=== PATIENT | male | born 1955 | race Caucasian/White ===

== ENCOUNTER 2017-02-20 00:27 | Emergency (ER) | payer BC ==
[~2017-02-20] VITALS: Ht 177.8 cm; Wt 138.3 kg
[2017-02-20 00:30] VITALS: TEMP 36.6; Ht 177.8 cm; Wt 138.3 kg
[2017-02-20 01:22] LABS: BASO % 0.3 %; BASO ABS # 0.03 K/uL (0-0.2); COMPLETE YES; EOS % 1.5 %; HEMATOCRIT 49.3 % (42-52); IG% 0.2 %; LYMPH % 16.1 %; LYMPH ABS # 1.42 K/uL (1.2-3.4); MEAN CELL VOLUME 89.5 fL (80-100); MEAN CORPUSCULAR HEMOGLOBIN 29.8 pg (25-34); MEAN CORPUSCULAR HGB CONC 33.3 g/dl (32-36); MONO % 7.5 %; NEUT % 74.4 %; PLATELET COUNT 201 K/uL (130-400); RED BLOOD COUNT 5.51 M/uL (4.7-6.1); WHITE BLOOD COUNT 8.81 K/uL (4.8-10.8)
[2017-02-20 01:48] VITALS: O2SAT 94
[2017-02-20 01:54] LABS: ALKALINE PHOSPHATASE 62 U/L (45-117); ALT/SGPT 59 U/L (12-78); AST/SGOT 30 U/L (15-37); BLOOD UREA NITROGEN 15 mg/dl (7-18); BUN/CREATININE RATIO 11.5 (10-20); CALCIUM 8.1 mg/dl (8.5-10.1); CARBON DIOXIDE 29 mmol/L (21-32); CHLORIDE 101 mmol/L (98-107); CKMB/CK RATIO 1.6 (0-3.0); GLUCOSE 170 mg/dl (70-99); POTASSIUM 3.4 mmol/L (3.5-5.1); SODIUM 138 mmol/L (136-145)
[2017-02-20] MEDS ORDERED: LEVO75TA5 PO (02:00)
[2017-02-20] MEDS ORDERED: HYDR25TA4 PO (02:01)
[2017-02-20] MEDS ORDERED: CHOL1TAB42 PO (02:02)
[2017-02-20] MEDS ORDERED: ZINC30TA3 PO (02:03)
[2017-02-20] MEDS ORDERED: [UNRECOGNIZED DRUG - CODE] NAE (02:06)
[2017-02-20] MEDS ORDERED: COEN1CAP37 PO (02:18)
[2017-02-20 02:46] VITALS: BP 150/98; PULSE 91; O2SAT 94
--- NOTE | 2017-02-20 04:14 | EMERGENCY ROOM VISIT NOTE ---
History Report prepared by Gabino: Karma Olson Under the Supervision of: Dr. Diane Valdez D.O. First contact with patient: 00:47 Chief Complaint: RESPIRATORY PROBLEMS Stated Complaint: CAN'T FIND PULSE Nursing Triage Summary: Pt was cleaning at a camp and was exposed to mold, since then pt states feeling of racing pulse and unable to catch his breath, pt breathing with mild difficulty at this time, pt pausing while speaking. Lobes clear to auscultation at this time. History of Present Illness The patient is a 61 year old male who presents to the Emergency Room with complaints of worsening respiratory problems starting this evening. The patient states that him and some friends are at their camp trying to clean it out. He reports that when they got there it was full of mold. He states that they left it open all day, but this evening had to close it up for bed and turn the heat on. He believes that he is having some sort of reaction to the mold. He reports that there is a carbon monoxide sensor so he does not believe it is from carbon monoxide poisoning. The patient states that he went out to dinner tonight and had [employer]. He states that he is not supposed to have a lot of salt, but doesn't believe this is from it. He notes when he came home he put his compressions on for his legs and fell asleep. He reports that he woke up and was struggling to breathe. He notes he also had a pounding headache. He states the smell of mold was more intense. The patient states that he tried to feel for a pulse, but couldn't find one on himself. He states that this happened once before when he had tachycardia. He states that his heart felt like it was fluttering. He reports that he decided to go outside and take some deep breaths , but it didn't do anything. He notes at this time he was lightheaded and could feel his heart beating in different patterns. He states his chest felt tight and he was short of breath. He states that he felt close to passing out. He reports that he thought he was having an anxiety attack so took his prescribed medication with no relief. He reports that he drank some water and woke up his friend who also couldn't find his pulse. He states that this is when he decided to come to the ED. The patient states that [place] his symptoms started to disappear. He notes that other staying at the camp were having similar issues. The patient complains of a sore lump on his back, a dry mouth, and excessive belching. The patient denies abnormal bowel movements and chest pain. He notes he hasn't been able to wear his C-PAP at night because he wakes up choking on phlegm. Source of History: patient Onset: this evening Position: other (global) Quality: other (global) Timing: worsening Associated Symptoms: + headache, + SOB, No chest pain Note: The patient complains of feeling his heart fluttering, lightheadedness, feeling close to syncope, chest tightness, a sore lump on his back, a dry mouth, and excessive belching. The patient denies abnormal bowel movements. Review of Systems See HPI for pertinent positives & negatives. A total of 10 systems reviewed and were otherwise negative. Past Medical & Surgical Medical Problems: (1) Diabetes (2) Hypertension (3) Hypothyroidism (4) Tachycardia Surgical Problems: (1) Lipoma (2) Umbilical hernia Family History Cancer Diabetes mellitus Heart disease Hypertension Social History Smoking Status: Never Smoker Smokeless Tobacco Use: No Alcohol Use: none Drug Use: none Marital Status: Housing Status: lives with family Occupation Status: employed Current/Historical Medications Scheduled Cholecalciferol (Vitamin D), 10,000 UNITS PO DAILY Coenzyme Q10 (Ubidecarenone) (Co Q-10), 200 MG PO DAILY Levothyroxine Sodium (Levothyroxine Sodium), 75 MCG PO DAILY Testosterone (Testosterone), 8 SPRAYS DANIEL DAILY Zinc Gluconate (Zinc), 30 MG PO DAILY Scheduled PRN Hydrochlorothiazide (Hctz), 25 MG PO DAILY PRN for LOWER EXTREMITY EDEMA Allergies Coded Allergies: Sulfa Antibiotics (Verified Allergy, Intermediate, interfers with metformin, 02/20/17) Aspirin (Verified Adverse Reaction, Intermediate, nose bleeds, 02/20/17) Ciprofloxacin (Verified Adverse Reaction, Intermediate, reaction, 02/20/17 ) Uncoded Allergies: ADHESIVES (SOME) (Allergy, Unknown, UNKNOWN, 02/20/17) Physical Exam Vital Signs Date Time Temp Pulse Resp B/P (MAP) Pulse Ox O2 Delivery O2 Flow Rate FiO2 02/20/17 02:46 91 16 150/98 94 02/20/17 01:48 94 Room Air 02/20/17 01:47 95 25 139/88 94 Room Air 02/20/17 00:45 93 Room Air 02/20/17 00:30 36.6 99 22 171/96 93 Room Air Physical Exam HEENT: Head - normocephalic and atraumatic Pupils are equal, round, and reactive to light. Extraocular eye muscles are intact, and sclera are anicteric. Nose - moist nasal mucosa without discharge. Mouth - moist buccal mucosa. Oropharynx is nonerythematous and there is no tonsillar exudate or edema noted. Neck: Supple; no JVD, nuchal rigidity, cervical lymphadenopathy. Heart: Regular rate and rhythm. There is a normal S1 and S2 with no murmurs, clicks, or gallops appreciated. Lungs: Clear to auscultation bilaterally with no wheezes, rales, or rhonchi. Abdomen: Soft, completely nontender, moderately distended, with good bowel sounds. There are no palpable pulsatile masses or hepatosplenomegaly. There is no guarding, rigidity, or rebound noted. Extremities: No evidence of cyanosis or clubbing. Lower extremity edema. There are easily palpable peripheral pulses. Skin: warm and dry with good turgor and no rashes. Medical Decision & Procedures ER Provider Diagnostic Interpretation: CHEST X-RAY: The results were interpreted by me. Cardiomegaly. Moderate peribronchial cuffing. No evidence of CHF. Laboratory Results 02/20/17 00:50 Red Blood Count 5.51, Mean Corpuscular Volume 89.5, Mean Corpuscular Hemoglobin 29.8, Mean Corpuscular Hemoglobin Concent 33.3, Mean Platelet Volume 11.0, Neutrophils (%) (Auto) 74.4, Lymphocytes (%) (Auto) 16.1, Monocytes (%) (Auto) 7.5, Eosinophils (%) (Auto) 1.5, Basophils (%) (Auto) 0.3, Neutrophils # (Auto) 6.55, Lymphocytes # (Auto) 1.42, Monocytes # (Auto) 0.66, Eosinophils # (Auto) 0.13, Basophils # (Auto) 0.03 02/20/17 00:50 Test 02/20/17 00:50 White Blood Count 8.81 K/uL (4.8-10.8) Red Blood Count 5.51 M/uL (4.7-6.1) Hemoglobin 16.4 g/dL (14.0-18.0) Hematocrit 49.3 % (42-52) Mean Corpuscular Volume 89.5 fL (80-100) Mean Corpuscular Hemoglobin 29.8 pg (25-34) Mean Corpuscular Hemoglobin Concent 33.3 g/dl (32-36) Platelet Count 201 K/uL (130-400) Mean Platelet Volume 11.0 fL (7.4-10.4) Neutrophils (%) (Auto) 74.4 % Lymphocytes (%) (Auto) 16.1 % Monocytes (%) (Auto) 7.5 % Eosinophils (%) (Auto) 1.5 % Basophils (%) (Auto) 0.3 % Neutrophils # (Auto) 6.55 K/uL (1.4-6.5) Lymphocytes # (Auto) 1.42 K/uL (1.2-3.4) Monocytes # (Auto) 0.66 K/uL (0.11-0.59) Eosinophils # (Auto) 0.13 K/uL (0-0.5) Basophils # (Auto) 0.03 K/uL (0-0.2) RDW Standard Deviation 49.9 fL (36.4-46.3) RDW Coefficient of Variation 15.3 % (11.5-14.5) Immature Granulocyte % (Auto) 0.2 % Immature Granulocyte # (Auto) 0.02 K/uL (0.00-0.02) Anion Gap 8.0 mmol/L (3-11) Est Creatinine Clear Calc Drug Dose 82.6 ml/min Estimated GFR () 67.8 Estimated GFR (Non- 58.5 BUN/Creatinine Ratio 11.5 (10-20) Calcium Level 8.1 mg/dl (8.5-10.1) Total Bilirubin 0.5 mg/dl (0.2-1) Direct Bilirubin 0.1 mg/dl (0-0.2) Aspartate Amino Transf (AST/SGOT) 30 U/L (15-37) Alanine Aminotransferase (ALT/SGPT) 59 U/L (12-78) Alkaline Phosphatase 62 U/L (45-117) Total Creatine Kinase 472 U/L (39-308) Creatine Kinase MB 7.7 ng/ml (0.5-3.6) Creatine Kinase MB Ratio 1.6 (0-3.0) Troponin I < 0.015 ng/ml (0-0.045) Pro-B-Type Natriuretic Peptide 101 pg/ml (0-900) Total Protein 7.0 gm/dl (6.4-8.2) Albumin 3.4 gm/dl (3.4-5.0) Thyroid Stimulating Hormone (TSH) 2.700 uIu/ml (0.300-4.500) Chemistry Specimen Hemolysis Laboratory results per my review. ECG Indication: SOB/dyspnea Rate (beats per minute): 95 Rhythm: normal sinus Findings: PVC, no acute ischemic change ED Course 0058: The patient was evaluated in room A10. A complete history and physical exam was performed. An IV lock was initiated and labs are drones above. The patient was observed on the bus driver/monitor and pulse oximeter. He had a chest x-ray a twelve-lead EKG as described above. 0232: Upon reevaluation, the patient is doing well. He wants to go home and agrees to follow up with the PCP on Wednesday. I discussed findings and results with him. He verbalized agreement of the treatment plan. The patient was discharged home. Medical Decision The patient is a 61 year old male who presents to the Emergency Room with complaints of worsening respiratory problems starting this evening. Differential diagnoses include hyperthyroidism, cardiac dysrhythmia, carbon monoxide poisoning, cardiac ischemia, mold exposure. LABS: White count 8.8 Stable H&H Glucose 170 Normal renal function Normal LFTs TSH 2.7 Total CKA 472 CKMB 7.7 Negative Troponin BNP 101 Upon presentation to the emergency department, the patient had no shortness of breath or hypoxia. The palpitations have subsided. The headache had subsided. I did review the patient's chest x-ray with him and there appears to be some chronic findings on it. I recommend that he follow-up with his PCP for CT scan of the chest sometime in the near future. He does describe having history of reacting to mold in the past and believes that this is cause of all of his symptoms. We talked about the possibility of a cardiac dysrhythmia causing his palpitations and the need for a possible Holter monitor if the palpitations persist. Patient plans to sleep in his truck tonight to avoid further exposure to the mold. The patient's is coming to pick him up in the morning. He was told to return to the emergency department immediately if he developed any worsening palpitations or shortness of breath. Impression Primary Impression: Heart palpitations Additional Impression: Suspected exposure to mold Scribe Attestation The scribe's documentation has been prepared under my direction and personally reviewed by me in its entirety. I confirm that the note above accurately reflects all work, treatment, procedures, and medical decision making performed by me. Departure Information Dispostion Home / Self-Care Referrals Yulissa Burton M.D. (PCP) Forms HOME CARE DOCUMENTATION FORM, IMPORTANT VISIT INFORMATION, WORK / SCHOOL INSTRUCTIONS Patient Instructions My [facility] Additional Instructions You must follow up with PCP on Wednesday for CT of chest for findings on chest x- ray You may also need a holter monitor if palpitations continue. Avoid being in the cabin (MOLD) Return to the Er for any chest pain or further palpitations. Problem Qualifiers
--- NOTE | 2017-02-20 07:09 | DIAGNOSTIC IMAGING REPORT ---
TWO VIEW CHEST CLINICAL HISTORY: Cough and dyspnea. FINDINGS: PA and lateral chest radiographs are obtained. No prior studies are available for comparison at the time of dictation. The heart is mildly enlarged. There is atherosclerotic calcification of the thoracic aorta. The pulmonary vasculature is noncongested. A prominent epicardial fat pad is present at the left lung base. Mild bibasilar atelectasis is observed. The lungs and pleural spaces are otherwise clear. There is no pneumothorax. The bony thorax appears intact. Degenerative change is present throughout the thoracic spine. IMPRESSION: Mild cardiac enlargement with no active disease in the chest. Electronically signed by: Yovani Razo M.D. 02/20/2017 7:08 AM Dictated Date/Time: 02/20/2017 7:07 AM
== END 2017-02-20 02:47 | disposition home or self-care (01) ==
LOC: C.EDB 00:29 → C.EDA 02:47
DX: R00.2 Palpitations (principal); Z77.120 Contact with and (suspected) exposure to mold (toxic); E11.9 Type 2 diabetes mellitus without complications; I10 Essential (primary) hypertension; E03.9 Hypothyroidism, unspecified; Z83.3 Family history of diabetes mellitus; Z82.49 Family history of ischemic heart disease and other diseases of the circulatory system; Z79.899 Other long term (current) drug therapy